=== PATIENT | female | born 1980 | race Caucasian/White ===

== ENCOUNTER 2025-05-01 11:08 | Emergency (ER) | payer SELFPAY | END 2025-05-01 12:00 | disposition home or self-care (01) | LOC: NAV ERS 11:08 | DX: J06.9 Acute upper respiratory infection, unspecified (principal); K12.0 Recurrent oral aphthae; K06.8 Other specified disorders of gingiva and edentulous alveolar ridge; F17.290 Nicotine dependence, other tobacco product, uncomplicated | CPT/HCPCS: 99283 ==